=== PATIENT | female | born 1985 | race Caucasian/White ===

== ENCOUNTER 2018-10-20 10:15 | Inpatient (IN) | payer OTHER ==
[~2018-10-20] VITALS: Ht 160 cm; Wt 82.6 kg
[~2018-10-20 10:15] MED LIST: DSS100 PO; FERR-89 PO; IBUP-2070 PO
[2018-10-20] MEDS ORDERED: RINGERS SOLUTION,LACTATED 1,000 ML IV PRN (10:54)
[2018-10-20] MEDS ORDERED: OXYTOCIN 30 UNITS/LACT RINGERS 500 ML IV ONE ×2 (10:54→23:50)
[2018-10-20 10:57] VITALS: BP 130/81
[2018-10-20] MEDS ORDERED: PREN-134 PO (10:59)
[2018-10-20] MEDS ORDERED: METOCLOPRAMIDE HCL 5 MG/ML 2 ML VIAL IVP PRN (11:00)
[2018-10-20] MEDS ORDERED: METHYLERGONOVINE MALEATE 0.2 MG/ML VIAL IM PRN (11:00)
[2018-10-20] MEDS ORDERED: OXYGEN THERAPY IH SCH (11:00)
[2018-10-20] MEDS ORDERED: CITRIC ACID/SODIUM CITRATE 30 ML SOLUTION UDCUP PO PRN (11:00)
[2018-10-20 11:37] LABS: BASOPHILS % (AUTO) 0.4 % (0.0-2.0); EOSINOPHILS % (AUTO) 0.4 % (1.0-6.0); HEMATOCRIT 36.1 % (36-46); HEMOGLOBIN 11.9 g/dL (12.0-16.0); LYMPHOCYTES # (AUTO) 1.6 K/uL (1.0-4.8); LYMPHOCYTES % (AUTO) 17.3 % (22.0-44.0); MEAN CORPUSCULAR HEMOGLOBIN 28.4 pg (26.0-34.0); MEAN CORPUSCULAR HGB CONC 33.1 G/dL (31.0-37.0); MEAN CORPUSCULAR VOLUME 86 fL (80-100); MONOCYTES # (AUTO) 0.6 K/uL (0.1-1.0); MONOCYTES % (AUTO) 6.7 % (2.0-9.0); NEUTROPHILS % (AUTO) 75.2 % (40.0-70.0); PLATELET COUNT (AUTO)-OB 181 K/uL (150-450); RED BLOOD CELL COUNT(AUTO) 4.21 MIL/uL (4.00-5.20); RED CELL DISTRIBUTION WIDTH 15.3 % (11.5-14.5)
[2018-10-20] MEDS ORDERED: DINOPROSTONE 10 MG VAGINAL SUPPOSITORY VG ONE (11:45)
[2018-10-20] MEDS: RINGERS SOLUTION,LACTATED 1,000 ML IV SCH ×3 (18:13→23:58)
[2018-10-20] MEDS ORDERED: OXYTOCIN 30 UNITS/LACT RINGERS 500 ML IV PRN (23:44)
[2018-10-21] MEDS: FentaNYL CITRATE-PF 100 MCG/2 ML VIAL IVP PRN ×3 (00:37→02:20)
[2018-10-21] MEDS ORDERED: ROPIVACAINE HCL/PF 0.2% 100 ML ED ONE (02:01)
[2018-10-21] MEDS ORDERED: ROPIVACAINE HCL/PF 0.2% 100 ML ED PRN (02:30)
[2018-10-21] MEDS ORDERED: ONDANSETRON HCL 4 MG/2 ML VIAL IVP PRN (02:30)
[2018-10-21] MEDS ORDERED: DiphenhydrAMINE HCL 50 MG/ML VIAL IVP PRN (02:30)
[2018-10-21] MEDS ORDERED: MISOPROSTOL 50 MCG TABLET PO ONE (04:35)
[2018-10-21] MEDS: RINGERS SOLUTION,LACTATED 1,000 ML IV SCH (06:54)
[2018-10-21] MEDS ORDERED: CeFAZolin 2 GM/DEXTROSE 50 ML IV ONE ×2 (08:45)
[2018-10-21] MEDS ORDERED: ACETAMINOPHEN/CODEINE 300-30 MG TABLET PO PRN (09:15)
[2018-10-21] MEDS ORDERED: BENZOCAINE 20%/MENTHOL 56 GM SPRAY CANISTER TP PRN (09:15)
[2018-10-21] MEDS ORDERED: LANOLIN 7 GM OINTMENT TP PRN (09:15)
[2018-10-21] MEDS: GLYCERIN/WITCH HAZEL LEAF 40 PADS JAR TP PRN ×2 (11:12→23:53)
[2018-10-21] MEDS: IBUPROFEN 800 MG TABLET PO SCH ×3 (11:12→22:31)
[2018-10-21] MEDS ORDERED: MAGNESIUM HYDROXIDE SUSPENSION 30 ML UDCUP PO SCH (21:00)
[2018-10-21] MEDS: ACETAMINOPHEN/CODEINE 300-30 MG TABLET PO PRN (22:31)
[2018-10-22] MEDS: IBUPROFEN 800 MG TABLET PO SCH (04:42)
[2018-10-22] MEDS: ACETAMINOPHEN/CODEINE 300-30 MG TABLET PO PRN (04:42)
== END 2018-10-22 12:30 | disposition home or self-care (01) | DRG 807 ==
LOC: OBSVTOIN 10:15 → 4S 10:15
PROVIDERS: ADMIT Obstetrics & Gynecology; ATTEND Obstetrics & Gynecology
PROC: 10D07Z6 Extraction of Products of Conception, Vacuum, Via Natural or Artificial Opening (ICD-10-PCS; principal; 2018-10-21)
PROC: 0HQ9XZZ Repair Perineum Skin, External Approach (ICD-10-PCS; 2018-10-21)
PROC: 3E0R3BZ Introduction of Anesthetic Agent into Spinal Canal, Percutaneous Approach (ICD-10-PCS; 2018-10-21)
PROC: 00HU33Z Insertion of Infusion Device into Spinal Canal, Percutaneous Approach (ICD-10-PCS; 2018-10-21)
DX: O69.81X0 Labor and delivery complicated by cord around neck, without compression, not applicable or unspecified (principal); Z37.0 Single live birth; O70.0 First degree perineal laceration during delivery; Z3A.40 40 weeks gestation of pregnancy
CPT/HCPCS: 86850; 86900; 86901; J0690; J2590; J2795; J3010; J7120